=== PATIENT | male | born 1940 | race Caucasian/White ===

== ENCOUNTER 2023-01-27 05:06 | Emergency (ER) | payer MEDICAID ==
[~2023-01-27] VITALS: Ht 170.2 cm; Wt 73.0 kg
[2023-01-27] MEDS ORDERED: PANTOPRAZOLE SODIUM 40 MG/VIAL IV STA (05:18)
[2023-01-27] MEDS ORDERED: CEFTRIAXONE 1GM PREMIX 50 ML IV ONE (05:30)
[2023-01-27] MEDS ORDERED: MORPHINE SULFATE 4 MG/ML CPJ (NOT FOR IM USE) IV ONE (05:30)
[2023-01-27] MEDS ORDERED: ONDANSETRON HCL 4MG/2ML INJ IV ONE (05:30)
[2023-01-27 06:02] LABS: CHLORIDE 111 mEq/L (98-107)
[2023-01-27 06:07] LABS: BASOPHILS % 0.2 % (0.0-2.0); EOSINOPHILS % 3.3 % (0.0-5.0); HEMATOCRIT. 42.6 % (42.0-52.0); HEMOGLOBIN. 14.3 g/dL (14.0-18.0); LYMPHOCYTES % 19.4 % (20.0-50.0); MEAN CORPUSCULAR HEMOGLOBIN 28.9 pg (28.0-32.0); MEAN CORPUSCULAR VOLUME 85.9 fL (80.0-94.0); MEAN PLATELET VOLUME 6.6 fl (7.4-10.4); NEUTROPHILS % 71.1 % (40.0-76.0); PLATELET 320 x1000/uL (130-400); RED BLOOD CELL COUNT 4.96 mill/uL (4.7-6.1); RED CELL DISTRIBUTION WIDTH 14.3 % (11.6-14.6)
[2023-01-27 06:16] LABS: PROTHROMBIN TIME 10.4 sec (9.6-11.0)
[2023-01-27] MEDS ORDERED: MAGNESIUM/ALUMINUM HYDROXIDE/SIMETHICONE 30ML UDC PO ONE (07:15)
[2023-01-27] MEDS ORDERED: ONDANSETRON HCL 4MG/2ML INJ IV NR (08:15)
[2023-01-27] MEDS ORDERED: MORPHINE SULFATE 4 MG/ML CPJ (NOT FOR IM USE) IV NR (08:15)
[2023-01-27] MEDS ORDERED: MAGNESIUM/ALUMINUM HYDROXIDE/SIMETHICONE 30ML UDC PO NR (08:15)
[2023-01-27] MEDS ORDERED: CEFTRIAXONE 1GM PREMIX 50 ML IV NR (08:15)
[2023-01-27] MEDS ORDERED: PANTOPRAZOLE SODIUM 40 MG/VIAL IV NR (08:15)
[2023-01-27 09:57] VITALS: BP 153/96
[2023-01-27] MEDS ORDERED: TOPUD PO ×2 (10:12)
[2023-01-27] MEDS ORDERED: IBUP-2028 MT ×2 (10:12)
[2023-01-27 11:15] LABS: HEMATOCRIT 41.7 % (42.0-52.0); HEMOGLOBIN 14.1 g/dL (14.0-18.0)
[2023-01-27] MEDS ORDERED: FAMO40TA70 MT (11:21)
== END 2023-01-27 11:52 | disposition home or self-care (01) ==
LOC: EDSEX 05:06 → ER 05:06
DX: R10.13 Epigastric pain (principal); R11.10 Vomiting, unspecified
CPT/HCPCS: 36415; 71045; 74176; 80053; 83690; 85014; 85018; 85025; 85610; 86850; 86900; 86901; 93005; 96365; 96375; 99285; C9113; J0696; J2270; J2405; Z7610